=== PATIENT | female | born 1985 | race Caucasian/White ===

== ENCOUNTER → 2018-10-01 | Outpatient (CLI) | payer BC ==
[2018-10-01 16:47] LABS: HCT 40.5 % (34.0-46.0); HGB 13.5 gm/dL (11.4-16.0); MCH 30.8 pg (25.0-35.0); MCHC 33.4 g/dL (31.0-37.0); MCV 92.2 fL (80.0-100.0); Mean Platelet Volume 6.5; Platelet Count 307 k/uL (150-450); RBC 4.39 m/uL (3.80-5.40); RDW 12.6 % (11.5-15.5); WBC 6.8 k/uL (3.8-10.6)
[2018-10-02 00:08] LABS: ALT 46 U/L (8-44); AST 33 U/L (13-35); Albumin/Globulin Ratio 2.72 (1.60-3.17); Alkaline Phosphatase 98 U/L (41-126); Bilirubin, Conjugated <0.20 mg/dL (0.20-0.40); Globulin 1.8 g/dL (1.6-3.3); Total Bilirubin 0.5 mg/dL (0.2-1.2); Total Protein 6.7 g/dL (6.2-8.2)
== END | disposition home or self-care (01) ==
LOC: LABWHC1 16:09
PROVIDERS: ATTEND Obstetrics & Gynecology
DX: R74.0 Nonspecific elevation of levels of transaminase and lactic acid dehydrogenase [LDH] (principal)
CPT/HCPCS: 36415; 80076; 85027

== ENCOUNTER → 2019-10-08 | Outpatient (CLI) | payer BC ==
[2019-10-08 10:39] LABS: HCT 36.9 % (34.0-46.0); HGB 12.7 gm/dL (11.4-16.0); MCH 31.3 pg (25.0-35.0); MCHC 34.4 g/dL (31.0-37.0); MCV 90.9 fL (80.0-100.0); Platelet Count 296 k/uL (150-450); RBC 4.06 m/uL (3.80-5.40); RDW 12.2 % (11.5-15.5); WBC 6.8 k/uL (3.8-10.6)
[2019-10-08 17:34] LABS: Hepatitis B Surface Antigen Non-Reactive (Non-Reactive)
[2019-10-08 17:52] LABS: African American GFR (CKD) 139.8 (60.0-200.0); Albumin 4.3 g/dL (3.80-4.90); Albumin/Globulin Ratio 2.39 (1.60-3.17); Bilirubin, Conjugated 0.2 mg/dL (0.20-0.40); Bilirubin,Unconjugated 0.4 mg/dL; Globulin 1.8 g/dL (1.6-3.3); Non-African American GFR(CKD) 120.6 (60.0-200.0); Total Bilirubin 0.6 mg/dL (0.2-1.2); Total Protein 6.1 g/dL (6.2-8.2)
[2019-10-09 04:47] LABS: Toxoplasma Antibody (IgG) <3.0 IU/mL (<7.2); Toxoplasma Antibody (IgM) <3.0 AU/mL (<8.0)
== END | disposition home or self-care (01) ==
LOC: LABWHC1 09:32
PROVIDERS: ATTEND Obstetrics & Gynecology
DX: Z34.81 Encounter for supervision of other normal pregnancy, first trimester (principal)
CPT/HCPCS: 36415; 80076; 82565; 82947; 85027; 86762; 86777; 86778; 86780; 86850; 86900; 86901; 87340

== ENCOUNTER 2020-03-22 17:52 | Outpatient (CLI) | payer BC ==
[2020-03-22 18:34] VITALS: BP 125/73; PULSE 87; RESP 17; TEMP 98.9
--- NOTE | 2020-04-02 21:13 | P.MSEPDOC ---
Presenting Problems - Arrival Data Date of Arrival on Unit: 03/22/20 Time of Arrival on Unit: 17:52 Mode of Transport: Ambulatory - Complaint OB-Reason for Admission/Chief Complaint: Other Comment: brown spotting since last night, reports + fm, denies pain Medical History - Information : 2 Para: 1 Term: 1 : 0 Abortions: Spontaneous or Elective: 0 Number of Living Children: 1 - Gestational Age Gestational Age by SEBASTIÁN (wks/days): 33 Weeks and 6 Days Review of Systems - Review of Systems Constitutional: No problems Breast: No problems ENT: No problems Cardiovascular: No problems Respiratory: No problems Gastrointestinal: No problems Genitourinary: No problems Musculoskeletal: No problems Neurological: No problems Skin: No problems Vital Signs - Temperature Temperature: 98.9 F Temperature Source: Oral - Pulse Right Brachial Pulse Rate: 87 Pulse Assessment Method: Automatic Cuff - Respirations Respiratory Rate: 17 Oxygen Delivery Method: Room Air O2 Sat by Pulse Oximetry: 98 - Blood Pressure Right Arm Blood Pressure: 125/73 Blood Pressure Mean: 90 Blood Pressure Source: Automatic Cuff Medical Screen Scoring (Pre) - Cervical Exam Dilation: 0 cm = 0 Effacement: Exam Deferred Membranes: Intact - Uterine Contractions Frequency: > 5 minutes apart = 1 Duration: > 40 seconds = 2 Intensity: N/A - Maternal Vital Signs Maternal Temperature: N/A Maternal Blood Pressure: N/A Signs of Preeclampsia: N/A Maternal Respirations: N/A - Maternal Trauma Maternal Trauma: N/A - Assessment - Baby A Baseline FHR: 145 Heart Rate - NICHD Category: Category I (Normal) = 0 NST: Reactive Position: N/A Station: N/A - Total Score - Baby A Total Score - Baby A: 3 - Total Score - Baby B Total Score - Baby B: 3 - Total Score - Baby C Total Score - Baby C: 3 - Level of Risk - Baby A Level of Risk - Baby A: Low (0-5) - Level of Risk - Baby B Level of Risk - Baby B: Low (0-5) - Level of Risk - Baby C Level of Risk - Baby C: Low (0-5) Physician Notification (Pre) - Physician Notified Physician Notified Date: 03/22/20 Physician Notified Time: 18:20 New Order Received: Yes (dc home) Disposition - Disposition OB Disposition: Discharge to home, Written follow up instructions reviewed Discharge Date: 03/22/20 Discharge Time: 18:33 I agree with the RN Medical Screening Exam: Yes Risk & Benefit of care provided described in d/c instruction: Yes Diagnosis: SPOTTING COMPLICATING , THIRD TRIMESTER
== END 2020-03-22 18:33 | disposition home or self-care (01) ==
LOC: FBPOP 17:52
PROVIDERS: ATTEND Obstetrics & Gynecology
DX: O26.853 Spotting complicating pregnancy, third trimester (principal); Z3A.33 33 weeks gestation of pregnancy
CPT/HCPCS: 59025; 99213

== ENCOUNTER 2020-03-30 14:42 | Outpatient (CLI) | payer BC ==
[2020-03-30] MEDS ORDERED: BETAMET ACET-BETAMETH SOD PHOS 6 MG/ML MDV IM SCH (15:00)
[2020-03-30 15:51] VITALS: BP 110/65; PULSE 88; RESP 16; TEMP 98
--- NOTE | 2020-03-30 18:31 | P.MSEPDOC ---
Presenting Problems - Arrival Data Date of Arrival on Unit: 03/30/20 Time of Arrival on Unit: 14:44 Mode of Transport: Ambulatory - Complaint OB-Reason for Admission/Chief Complaint: Celestone Injection Comment: pt arrived for initial dose of celestone and NST and to return tomorrow in 24 hrs for her second dose of celestone. Medical History - Information : 2 Para: 1 Term: 1 : 0 Abortions: Spontaneous or Elective: 0 Number of Living Children: 1 - Gestational Age Gestational Age by SEBASTIÁN (wks/days): 35 Weeks and 0 Days - History Complications: Other Comment: cholestasis with this and prior Review of Systems - Review of Systems Constitutional: No problems Breast: No problems ENT: No problems Cardiovascular: No problems Respiratory: No problems Gastrointestinal: No problems Genitourinary: No problems Musculoskeletal: No problems Neurological: No problems Skin: Itching Vital Signs - Temperature Temperature: 98 F Temperature Source: Oral - Pulse Right Brachial Pulse Rate: 88 Pulse Assessment Method: Automatic Cuff - Respirations Respiratory Rate: 16 Oxygen Delivery Method: Room Air O2 Sat by Pulse Oximetry: 97 - Blood Pressure Right Arm Blood Pressure: 110/65 Blood Pressure Mean: 80 Blood Pressure Source: Automatic Cuff Medical Screen Scoring (Pre) - Cervical Exam Dilation: Exam Deferred Effacement: Exam Deferred Membranes: Intact - Uterine Contractions Frequency: N/A Duration: N/A Intensity: N/A - Maternal Vital Signs Maternal Temperature: N/A Maternal Blood Pressure: N/A Signs of Preeclampsia: N/A Maternal Respirations: N/A - Maternal Trauma Maternal Trauma: N/A - Assessment - Baby A Baseline FHR: 140 Heart Rate - NICHD Category: Category I (Normal) = 0 NST: Reactive Position: N/A Station: N/A - Total Score - Baby A Total Score - Baby A: 0 - Total Score - Baby B Total Score - Baby B: 0 - Total Score - Baby C Total Score - Baby C: 0 - Level of Risk - Baby A Level of Risk - Baby A: Low (0-5) - Level of Risk - Baby B Level of Risk - Baby B: Low (0-5) - Level of Risk - Baby C Level of Risk - Baby C: Low (0-5) Physician Notification (Pre) - Physician Notified Physician Notified Date: 03/30/20 Physician Notified Time: 15:36 New Order Received: No - Notification Comment Comment: reactive NST and first dose of celestone given. pt to return tomorrow for second dose of celestone Disposition - Disposition OB Disposition: Discharge to home Discharge Date: 03/30/20 Discharge Time: 15:40 I agree with the RN Medical Screening Exam: Yes Risk & Benefit of care provided described in d/c instruction: Yes Diagnosis: LIVER AND BILIARY TRACT DISORD IN , THIRD TRIMESTER (Patient presented for Celestone secondary to known diagnosis of cholestasis of pre gnancy. Patient is given betamethasone and heart tones are category 1. She'll return tomorrow approximately 24 hours later for second Celestone injection.)
== END 2020-03-30 15:40 | disposition home or self-care (01) ==
LOC: FBPOP 14:42
PROVIDERS: ATTEND Obstetrics & Gynecology
DX: O26.613 Liver and biliary tract disorders in pregnancy, third trimester (principal); Z3A.35 35 weeks gestation of pregnancy
CPT/HCPCS: 59025; 99214; J0702

== ENCOUNTER 2020-03-31 14:42 | Outpatient (CLI) | payer BC ==
[2020-03-31] MEDS ORDERED: BETAMET ACET-BETAMETH SOD PHOS 6 MG/ML MDV IM ONE (14:53)
[2020-03-31 15:11] VITALS: BP 109/62; PULSE 90; RESP 15; TEMP 97.5
--- NOTE | 2020-04-01 06:35 | P.MSEPDOC ---
Presenting Problems - Arrival Data Date of Arrival on Unit: 03/31/20 Time of Arrival on Unit: 14:42 Mode of Transport: Ambulatory - Complaint OB-Reason for Admission/Chief Complaint: Celestone Injection Medical History - Information : 2 Para: 1 Term: 1 : 0 Abortions: Spontaneous or Elective: 0 Number of Living Children: 1 - Gestational Age Gestational Age by SEBASTIÁN (wks/days): 35 Weeks and 1 Days Review of Systems - Review of Systems Constitutional: No problems Breast: No problems ENT: No problems Cardiovascular: No problems Respiratory: No problems Gastrointestinal: No problems Genitourinary: No problems Musculoskeletal: No problems Neurological: No problems Skin: No problems Vital Signs - Temperature Temperature: 97.5 F Temperature Source: Temporal Artery Scan - Pulse Pulse Oximetery Pulse Rate: 90 Pulse Assessment Method: Automatic Cuff - Respirations Respiratory Rate: 15 Oxygen Delivery Method: Room Air O2 Sat by Pulse Oximetry: 97 - Blood Pressure Right Arm Blood Pressure: 109/62 Blood Pressure Mean: 77 Blood Pressure Source: Automatic Cuff Medical Screen Scoring (Pre) - Cervical Exam Dilation: Exam Deferred Effacement: Exam Deferred Membranes: Intact - Uterine Contractions Frequency: N/A Duration: N/A Intensity: N/A - Maternal Vital Signs Maternal Temperature: N/A Signs of Preeclampsia: N/A Maternal Respirations: N/A - Maternal Trauma Maternal Trauma: N/A - Assessment - Baby A Baseline FHR: 130 Heart Rate - NICHD Category: Category I (Normal) = 0 NST: Reactive Position: N/A Station: N/A - Total Score - Baby A Total Score - Baby A: 0 - Total Score - Baby B Total Score - Baby B: 0 - Total Score - Baby C Total Score - Baby C: 0 - Level of Risk - Baby A Level of Risk - Baby A: Low (0-5) - Level of Risk - Baby B Level of Risk - Baby B: Low (0-5) - Level of Risk - Baby C Level of Risk - Baby C: Low (0-5) Physician Notification (Pre) - Physician Notified Physician Notified Date: 03/31/20 Physician Notification (Post) - Physician Notified Physician Notified Date: 03/31/20 Physician Notified Time: 15:25 Physician/Practitioner Notified:: Dr Lazcano New Order Received: Yes Disposition - Disposition OB Disposition: Discharge to home Discharge Date: 03/31/20 Discharge Time: 15:25 I agree with the RN Medical Screening Exam: Yes Risk & Benefit of care provided described in d/c instruction: Yes Diagnosis: LIVER AND BILIARY TRACT DISORD IN , UNSP TRIMESTER
== END 2020-03-31 15:26 | disposition home or self-care (01) ==
LOC: FBPOP 14:42
PROVIDERS: ATTEND Obstetrics & Gynecology
DX: O26.613 Liver and biliary tract disorders in pregnancy, third trimester (principal); Z3A.35 35 weeks gestation of pregnancy
CPT/HCPCS: 59025; 96372; J0702

== ENCOUNTER 2020-04-07 05:49 | Inpatient (IN) | payer BC ==
--- NOTE | 2020-04-06 08:26 | P.HPOB ---
History of Present Illness H&P Date: 04/06/20 Chief Complaint: Cholestasis This patient is a pleasant 34 yr EDC 05/[birth year]2020 estimated gestational age 36wk 1/7 days who presents for delivery secondary to cholestasis of . She has a history of cholestasis with her last and was delivered at 37wks. This she developed significant liver function elevations at 31 wks and Maternal Medicine recommended Celestone at 35wks and delivery at 36wks. She presents now for delivery. otherwise has been uncomplicated. Review of Systems Genitourinary: Reports Menstruation: Reports amenorrhea Past Medical History Past Medical History: No Reported History Additional Past Medical History / Comment(s): Previous 37wk vaginal delivery induced for cholestasis. History of Any Multi-Drug Resistant Organisms: None Reported Past Surgical History: No Surgical Hx Reported Past Anesthesia/Blood Transfusion Reactions: No Reported Reaction Past Psychological History: Depression Smoking Status: Never smoker Past Alcohol Use History: None Reported Past Drug Use History: None Reported - Past Family History Mother Family Medical History: No Reported History Medications and Allergies Home Medications Medication Instructions Recorded Confirmed Type Vit,Calc78/Iron/Folic 1 tab PO DAILY 05/09/16 03/31/20 History [Pretab 29 mg-1 mg Tablet] Citalopram Hydrobromide [CeleXA] 1 tab PO DAILY 03/30/20 03/31/20 History ursodioL [Ursodiol] 1 tab PO BID 03/30/20 03/31/20 History Allergies Allergy/AdvReac Type Severity Reaction Status Date / Time No Known Allergies Allergy Verified 03/31/20 14:49 Exam - OBG Physical Exam Abdomen: bowel sounds normal, no diffuse tenderness, no bruit present, no guarding noted, no hepatomegaly, no splenomegaly, no mass Vulva: both: normal Vagina: normal moisture, no discharge Cervix: no lesion (Cervix in the office 2 cm /50% effaced), no discharge Uterus: enlarged (Fundal height was 37cm) Results blood work: O positive, Rubella immune, RPR-HepB negative, glucola 133 with normal 3hr GTT. Ultrasounds have been normal including Level III with MFM. Assessment and Plan Assessment: This is a 34 yr female 36wks gestation with known cholestasis and elevated LFTs with recommendation for delivery due to significant risk of poor outcome if is continued. Patient has received Celestone at 35wks. Plan is antibiotic prophylaxis (due to prematurity), induction of labor, and anticipate . (1) 36 weeks gestation of Status: Acute Code(s): Z3A.36 - 36 WEEKS GESTATION OF SNOMED Code(s): 15836585 (2) Cholestasis during in third trimester Status: Acute Code(s): O26.613 - LIVER AND BILIARY TRACT DISORD IN , THIRD TRIMESTER; K83.1 - OBSTRUCTION OF BILE DUCT SNOMED Code(s): 345843224
[2020-04-07] MEDS ORDERED: OXYTOCIN 10 UNIT/ML 1 ML VIAL IM PRN (06:09)
[2020-04-07] MEDS ORDERED: METHYLERGONOVINE 0.2 MG/ML 1 ML AMP IM PRN (06:09)
[2020-04-07] MEDS ORDERED: CARBOPROST TROMETHAMINE 250 MCG/ML 1 ML AMP IM PRN (06:09)
[2020-04-07] MEDS ORDERED: AMPICILLIN 2,000 MG in SODIUM CHLORIDE 0.9% 100 ML IVPB ONE (06:09)
[2020-04-07] MEDS ORDERED: TERBUTALINE 1 MG/ML VIAL SQ PRN (06:09)
[2020-04-07] MEDS ORDERED: LIDOCAINE 0.5% (PF) 5 MG/ML (50 ML SDV) SQ PRN (06:09)
[2020-04-07] MEDS ORDERED: OXYTOCIN 30 UNITS/500 ML NS 30 UNIT in SALINE 1 500ML.BAG IV SCH (06:09)
[2020-04-07 06:26] LABS: Albumin 3.4 g/dL (3.5-5.0); Bilirubin, Conjugated 0.1 mg/dL (0.0-0.3); Bilirubin, Delta 1.2 mg/dL (0.0-0.2); Bilirubin,Unconjugated 0.4 mg/dL (0.0-1.1); Total Bilirubin 1.7 mg/dL (0.2-1.3)
[2020-04-07] MEDS: LACTATED RINGERS 1,000 ML IV SCH ×3 (06:30→10:40)
[2020-04-07] MEDS ORDERED: SODIUM CHLORIDE 0.9% 100 ML BAG ONE (09:51)
[2020-04-07] MEDS ORDERED: fentaNYL (PF) 50 MCG/ML 5 ML AMP ONE (09:51)
[2020-04-07] MEDS ORDERED: ROPIVACAINE 5MG/ML 20ML VIAL ONE (09:51)
[2020-04-07 09:59] LABS: Basophils % (A) 1 %; Eosinophils # (A) 0.1 k/uL (0-0.7); Eosinophils % (A) 2 %; HCT 36.7 % (34.0-46.0); HGB 12.4 gm/dL (11.4-16.0); Lymphocytes # (A) 1.9 k/uL (1.0-4.8); Lymphocytes % (A) 28 %; MCH 31.2 pg (25.0-35.0); MCHC 33.7 g/dL (31.0-37.0); MCV 92.7 fL (80.0-100.0); Mean Platelet Volume 8.8; Monocytes # (A) 0.6 k/uL (0-1.0); Monocytes % (A) 8 %; Neutrophils # (A) 4.2 k/uL (1.3-7.7); Neutrophils % (A) 60 %; Platelet Count 284 k/uL (150-450); RBC 3.96 m/uL (3.80-5.40); RDW 12.9 % (11.5-15.5); WBC 6.9 k/uL (3.8-10.6)
[2020-04-07] MEDS ORDERED: AMPICILLIN 1,000 MG in SODIUM CHLORIDE 0.9% 50 ML IVPB SCH (10:00)
[2020-04-07] MEDS ORDERED: diphenhydrAMINE 25 MG CAP PO PRN (11:34)
[2020-04-07] MEDS ORDERED: diphenhydrAMINE 50 MG/ML 1 ML VIAL IVP PRN (11:34)
[2020-04-07] MEDS ORDERED: HYDROCORTISONE 2.5% RECTAL CREAM 30 GM TUBE RECTAL PRN (11:34)
[2020-04-07] MEDS ORDERED: OXYTOCIN 20 UNITS/1000 ML NS 1,000 ML IV SCH (11:34)
[2020-04-07] MEDS ORDERED: ZOLPIDEM 5 MG TAB PO PRN (11:34)
[2020-04-07] MEDS ORDERED: SIMETHICONE 80 MG CHEWABLE PO PRN (11:34)
[2020-04-07] MEDS ORDERED: BENZOCAINE/MENTHOL SPRAY 1 GM/SPRAY AEROSOL TOPICAL PRN (11:34)
[2020-04-07] MEDS ORDERED: IBUPROFEN 600 MG TAB PO PRN (11:34)
[2020-04-07] MEDS ORDERED: bisacodyL 10 MG SUPP RECTAL PRN (11:34)
[2020-04-07] MEDS ORDERED: LANOLIN CREAM 5 GM TUBE TOPICAL PRN (11:34)
[2020-04-07] MEDS ORDERED: ACETAMINOPHEN TAB 325 MG TAB PO PRN (11:34)
--- NOTE | 2020-04-07 12:33 | P.PROBDLV ---
Vaginal Delivery Note - . Vaginal Delivery Note: Normal vaginal delivery viable male Apgars 9 and 9 delivery time is 1109 hrs. Please see dictated H&P for intimate details of this patient's admission. Brief summary is a pleasant 34-year-old 2 para 1 female 36 and one sevenths weeks gestation admitted for delivery secondary to cholestasis with elevated liver enzymes. Patient is admitted she is 3 cm dilated has artificial rupture membranes for light meconium-stained fluid. Patient has reactive heart tones and Pitocin induction of labor. Patient's labor progresses normally and she does get an epidural for pain control. Patient gets to complete quickly thereafter and pushes the head to the perineum. Posterior perineum was supported and we have controlled delivery of infant's head over the intact perineum. Mouth and nares are bulb suctioned. Inspection then shows a triple nuchal cord. Patient continues to push and deliver is the anterior posterior shoulder and rest this 's body. This is a vigorous viable male infant Apgars are 9 and 9 delivery time was 1109 hrs. has spontaneous respiration and good cry. Anesthesia was present after delivery due to the meconium fluid however that there was no assistants required. The placenta is then spontaneously delivered intact. Estimated blood loss is 150 mL. There is a first-degree posterior laceration. With 3-0 Vicryl usual fashion excellent reapproximation is noted. All counts correct 3. There are no complications. and mother stable delivery room.
[2020-04-07] MEDS: SENNOSIDES-DOCUSATE SODIUM 1 EACH TAB PO SCH ×2 (16:34→21:00)
--- NOTE | 2020-04-08 06:22 | P.PNOBGVD ---
Subjective - Subjective Patient reports: Reports appetite normal, Reports voiding normally, Reports pain well controlled, Reports ambulating normally : doing well Objective - Latest Vital Signs Latest vital signs: Vital Signs Temp Pulse Resp BP Pulse Ox 04/08/20 04:00 98.6 F 145 H 42 H 04/08/20 00:00 98.3 F 66 16 115/62 04/07/20 20:00 98.7 F 94 18 101/55 04/07/20 16:00 97.8 F 92 16 105/66 96 04/07/20 13:40 85 16 106/55 04/07/20 13:00 98 16 112/61 04/07/20 12:30 90 16 108/62 04/07/20 12:15 89 16 102/61 04/07/20 12:00 92 16 100/57 04/07/20 11:45 86 16 103/58 04/07/20 11:40 84 16 98/52 04/07/20 06:21 97.6 F 90 16 120/67 Intake and Output 04/07/20 04/07/20 04/08/20 14:59 22:59 06:59 Intake Total 800 Output Total 150 150 Balance 650 -150 Intake: Oral 800 Output: Estimated Blood Loss 150 150 Other: # Voids 2 2 - Labs Labs: Abnormal Lab Results - Last 24 Hours (Table) 04/07/20 Range/Units 06:08 Total Bilirubin 1.7 H (0.2-1.3) mg/dL Delta Bilirubin 1.2 H (0.0-0.2) mg/dL AST 157 H (14-36) U/L ALT 393 H (4-34) U/L Alkaline Phosphatase 237 H (38-126) U/L Total Protein 6.0 L (6.3-8.2) g/dL Albumin 3.4 L (3.5-5.0) g/dL Assessment and Plan Assessment: day #1. Patient is resting without new complaints wishes to go home. Vital signs are stable she's afebrile. CBC and hepatic panel are pending at this time. Patient is having normal lochia and her uterus is firm and nontender. My impression is a normal course. Plan is to continue routine care discharge home later today (1) 36 weeks gestation of Current Visit: No Status: Acute Code(s): Z3A.36 - 36 WEEKS GESTATION OF SNOMED Code(s): 34180829 (2) Cholestasis during in third trimester Current Visit: No Status: Acute Code(s): O26.613 - LIVER AND BILIARY TRACT DISORD IN , THIRD TRIMESTER; K83.1 - OBSTRUCTION OF BILE DUCT SNOMED Code(s): 745239027
--- NOTE | 2020-04-08 06:26 | P.DS ---
Providers Date of admission: 04/07/20 05:49 Expected date of discharge: 04/08/20 Attending physician: Estevan Garcia Primary care physician: Stated None - Discharge Diagnosis(es) (1) 36 weeks gestation of Current Visit: No Status: Acute (2) Cholestasis during in third trimester Current Visit: No Status: Acute Hospital Course: Please see dictated H&P for intimate details of this patient's admission. Brief summary is a pleasant 34-year-old 2 para 1 female 36 and one sevenths weeks gestation who is admitted to labor and delivery for induction of labor secondary to cholestasis and elevated liver enzymes. Patient is admitted she is uncomplicated induction of labor goes on have a vaginal delivery viable male . Please see dictated delivery note. day 1 patient's felt be stable for discharge home follow up with me in 6 weeks repeat her liver tests at that time as well. Procedures: Induction of labor and normal vaginal delivery Patient Condition at Discharge: Good Plan - Discharge Summary New Discharge Prescriptions: New Ibuprofen [Motrin] 600 mg PO Q6HR PRN #40 tab PRN Reason: Mild Pain Or Fever >= 100.5 No Action Vit,Calc78/Iron/Folic [Pretab 29 mg-1 mg Tablet] 1 tab PO DAILY ursodioL [Ursodiol] 1 tab PO BID Citalopram Hydrobromide [CeleXA] 1 tab PO DAILY Discharge Medication List Vit,Calc78/Iron/Folic [Pretab 29 mg-1 mg Tablet] 1 tab PO DAILY 05/09/16 [History] Citalopram Hydrobromide [CeleXA] 1 tab PO DAILY 03/30/20 [History] ursodioL [Ursodiol] 1 tab PO BID 03/30/20 [History] Ibuprofen [Motrin] 600 mg PO Q6HR PRN #40 tab 04/08/20 [Rx] Follow up Appointment(s)/Referral(s): Estevan Garcia MD [STAFF PHYSICIAN] - 05/19/20 9:15 am Patient Instructions/Handouts: Vaginal Delivery (DC) Activity/Diet/Wound Care/Special Instructions: No intercourse or anything per vagina for 6 weeks. Please call if any fever, chills, excessive vaginal bleeding, and/or abdominal pain. Discharge Disposition: HOME SELF-CARE
[2020-04-08 06:54] LABS: Basophils % (A) 0 %; Eosinophils # (A) 0.1 k/uL (0-0.7); Eosinophils % (A) 1 %; HCT 31.9 % (34.0-46.0); HGB 10.4 gm/dL (11.4-16.0); Lymphocytes # (A) 2.2 k/uL (1.0-4.8); Lymphocytes % (A) 25 %; MCH 30.4 pg (25.0-35.0); MCHC 32.7 g/dL (31.0-37.0); Mean Platelet Volume 8.1; Monocytes # (A) 0.7 k/uL (0-1.0); Monocytes % (A) 8 %; Neutrophils # (A) 5.7 k/uL (1.3-7.7); Neutrophils % (A) 63 %; Platelet Count 239 k/uL (150-450); RBC 3.43 m/uL (3.80-5.40); RDW 12.9 % (11.5-15.5)
[2020-04-08 07:12] LABS: Albumin 2.7 g/dL (3.5-5.0); Bilirubin, Conjugated 0.1 mg/dL (0.0-0.3); Bilirubin, Delta 1.3 mg/dL (0.0-0.2); Bilirubin,Unconjugated 0.3 mg/dL (0.0-1.1); Total Bilirubin 1.7 mg/dL (0.2-1.3); Total Protein 4.9 g/dL (6.3-8.2)
[2020-04-08] MEDS: SENNOSIDES-DOCUSATE SODIUM 1 EACH TAB PO SCH ×2 (09:24→20:05)
--- NOTE | 2020-04-09 05:46 | P.PNOBGVD ---
Subjective - Subjective Patient reports: Reports appetite normal, Reports voiding normally, Reports pain well controlled, Reports ambulating normally : doing well Objective - Latest Vital Signs Latest vital signs: Vital Signs Temp Pulse Resp BP Pulse Ox 04/09/20 00:00 98.0 F 84 16 105/70 04/08/20 16:00 98.3 F 124 H 16 115/75 100 04/08/20 08:00 98.3 F 75 16 112/66 Intake and Output 04/08/20 04/08/20 04/09/20 14:59 22:59 06:59 Other: # Voids 1 - Exam Lungs: bilateral: normal Chest: Normal S1, Normal S2 Extremities: Present: normal Abdomen: Present: normal appearance, soft Uterus: Present: normal, firm - Labs Labs: Abnormal Lab Results - Last 24 Hours (Table) 04/08/20 04/08/20 Range/Units 05:35 05:35 RBC 3.43 L (3.80-5.40) m/uL Hgb 10.4 L (11.4-16.0) gm/dL Hct 31.9 L (34.0-46.0) % Total Bilirubin 1.7 H (0.2-1.3) mg/dL Delta Bilirubin 1.3 H (0.0-0.2) mg/dL AST 142 H (14-36) U/L ALT 307 H (4-34) U/L Alkaline Phosphatase 190 H (38-126) U/L Total Protein 4.9 L (6.3-8.2) g/dL Albumin 2.7 L (3.5-5.0) g/dL Assessment and Plan Assessment: day #2. Patient is going to go home yesterday however her baby did develop some significant jaundice getting photo therapy. Plan today is to continue routine care and discharge home later today. There are function tested go down yesterday repeat doses an outpatient. (1) 36 weeks gestation of Current Visit: No Status: Acute Code(s): Z3A.36 - 36 WEEKS GESTATION OF SNOMED Code(s): 01074515 (2) Cholestasis during in third trimester Current Visit: No Status: Acute Code(s): O26.613 - LIVER AND BILIARY TRACT DISORD IN , THIRD TRIMESTER; K83.1 - OBSTRUCTION OF BILE DUCT SNOMED Code(s): 198490565
[2020-04-09] MEDS: SENNOSIDES-DOCUSATE SODIUM 1 EACH TAB PO SCH (08:18)
[2020-04-09 20:17] VITALS: BP 107/66; PULSE 75; RESP 18; TEMP 97.6
== END 2020-04-09 20:00 | disposition home or self-care (01) | DRG 805 ==
LOC: 4FBP 05:49
PROVIDERS: ADMIT Obstetrics & Gynecology; ATTEND Obstetrics & Gynecology
DX: O26.62 Liver and biliary tract disorders in childbirth (principal); K83.1 Obstruction of bile duct; Z37.0 Single live birth; O99.344 Other mental disorders complicating childbirth; F32.9 Major depressive disorder, single episode, unspecified; O70.0 First degree perineal laceration during delivery; O69.81X0 Labor and delivery complicated by cord around neck, without compression, not applicable or unspecified; O77.0 Labor and delivery complicated by meconium in amniotic fluid; Z3A.36 36 weeks gestation of pregnancy; Z79.899 Other long term (current) drug therapy
CPT/HCPCS: 80076; 85025; 86850; 86900; 86901; 88307

== ENCOUNTER → 2020-07-09 | Outpatient (CLI) | payer BC ==
--- NOTE | 2020-07-09 13:38 | XR ---
Right wrist HISTORY: Pain 3 views of the right wrist Bone mineralization, joint spaces and alignment are maintained. No fracture or dislocation. Her impression: Normal right wrist, consider wrist MRI.
== END | disposition home or self-care (01) ==
LOC: RADXRYALE 09:33
PROVIDERS: ATTEND Physician Assistant
DX: M25.531 Pain in right wrist (principal)

== ENCOUNTER → 2020-09-25 | Outpatient (CLI) | payer BC | LOC: RADECHMAIN 12:20 | PROVIDERS: ATTEND Family Medicine | DX: R00.2 Palpitations (principal); R07.9 Chest pain, unspecified | CPT/HCPCS: 93225; 93226 ==

== ENCOUNTER → 2021-11-10 | Outpatient (CLI) | payer BC ==
--- NOTE | 2021-11-12 10:52 | MM ---
Reason for exam: screening (asymptomatic). Baseline mammogram. History: Family history of breast cancer in paternal grandmother at age 40. Physical Findings: A clinical breast exam by your physician is recommended on an annual basis and results should be correlated with mammographic findings. MG 3D Screening Mammo W/Cad Bilateral CC and MLO view(s) were taken. The breast tissue is heterogeneously dense. This may lower the sensitivity of mammography. There is no discrete abnormality. ASSESSMENT: Negative, BI-RAD 1 RECOMMENDATION: Routine screening mammogram of both breasts at age 41. (unless clinical indication to start sooner)
== END | disposition home or self-care (01) ==
LOC: RADMAMWWP 09:56
PROVIDERS: ATTEND Obstetrics & Gynecology
DX: Z12.31 Encounter for screening mammogram for malignant neoplasm of breast (principal)
CPT/HCPCS: 77063; 77067

== ENCOUNTER → 2024-11-22 | Outpatient (CLI) | payer BC ==
--- NOTE | 2024-11-22 07:55 | MM ---
Reason for Exam: Screening (asymptomatic). Last mammogram was performed 3 year(s) and 0 month(s) ago. Patient History: Menarche at age 12. First Full-Term at age 30. Premenopausal. Paternal grandmother had breast cancer, age 40. Last menstrual period: 11/07/2024 Risk Values: Afia 5 year model risk: 0.6%. NCI Lifetime model risk: 12.2%. Prior Study Comparison: 11/10/2021 Bilateral Screening Mammogram, [facility]. Tissue Density: The breasts are heterogeneously dense, which may obscure small masses. Findings: Analyzed By CAD. There is no suspicious group of microcalcifications or new suspicious mass in either breast. Overall Assessment: Benign, BI-RAD 2 Management: Screening Mammogram of both breasts in 1 year. . Patient should continue monthly self-breast exams. A clinical breast exam by your physician is recommended on an annual basis. This exam should not preclude additional follow-up of suspicious palpable abnormalities. Note on Afia scores and lifetime risk: 1. A Afia score greater than 3% is considered moderate risk. If this is the case, consider specialist referral to assess eligibility for a risk reducing agent. 2. If overall lifetime risk for the development of breast cancer is 20% or higher, the patient may qualify for future screening with alternating mammogram and breast MRI. [facility], , 11/22/2024 7:52 AM. Electronically signed and approved by: Aureliano Aden M.D. [facility]iolog[facility]
== END | disposition home or self-care (01) ==
LOC: RADMAMWWP 07:32
PROVIDERS: ATTEND Obstetrics & Gynecology Gynecology
DX: Z12.31 Encounter for screening mammogram for malignant neoplasm of breast (principal); R92.333 Mammographic heterogeneous density, bilateral breasts; Z80.3 Family history of malignant neoplasm of breast
CPT/HCPCS: 77063; 77067